=== PATIENT | male | born 1960 | race Caucasian/White ===

== ENCOUNTER → 2016-10-16 | Outpatient (CLI) | payer OTHER ==
[~2016-10-16] VITALS: Ht 180.3 cm; Wt 83.5 kg
[~2016-10-16] MED LIST: ALLOPURINOL 30300 M2 PO; ASPIR 8181 M1 PO; CIALIS5 MG PO; FISH OIL 1,001000 M2 PO; HYDROCHLOROTHIA25 M2 PO; IRBESARTAN300 MG PO
--- NOTE | ~2016-10-16 | S ---
[facility] [place] [address] [address] SURGICAL PATH RPT PROCEDURE Name: EZEQUIEL CHOI Room #: REG Liudmila NamJosh.#: [id number] Admission: 10/16/16 Date of : 62 Discharge: Report #: [id number] Path Case #: [id number] PATHOLOGY REPORT COLLECTION DATE: 10/16/2016 RECEIVED DATE: 10/16/2016 SUBMITTING PHYS: Dr. Marvin Brown OTHER PHYS: Dr. Issac Coronel SPECIMEN(S) RECEIVED: A.Random bx r/o microscopic colitis B.Bx of rectal polyp * * * * * * * * * * * * FINAL DIAGNOSIS: A. Colon, random biopsies: - Findings consistent with mild lymphocytic colitis (please see microscopic). B. Colon, rectum, biopsy: - Hyperplastic polyp with mild to moderate acute and chronic inflammation. (SKM/coy; 10/19/2016) PATHOLOGIST: Maria Esther Martins M.D. REPORT ELECTRONICALLY SIGNED BY: Maria Esther Martins M.D. DATE/TIME: 10/19/2016 11:44 * * * * * * * * * * * * MICROSCOPIC DESCRIPTION: A. Sections show fragments of colonic mucosa in which increased numbers of acute and chronic inflammatory cells are present in the lamina propria. Mild crypt distortion is seen, however, there is no evidence of crypt abscesses or acute cryptitis. Mildly increased numbers of intraepithelial lymphocytes are seen in the surface epithelium which exhibits tiny focal areas of disruption. GROSS PATHOLOGY: A. Received in formalin labeled "Ezequiel Choi, random biopsy rule out microscopic colitis," are 6 segments of ley soft tissue measuring 1.0 x 0.7 x 0.3 cm in aggregate dimensions and ranging from 0.3 to 0.5 cm in maximum dimension. The specimen is submitted entirely in cassette A1. B. Received in formalin labeled "Ezequiel Choi, biopsy of rectal polyp," are 3 segments of ley soft tissue measuring 0.6 x 0.4 x 0.2 cm in aggregate dimensions and ranging from 0.2 to 0.3 cm in maximum dimension. The specimen is submitted entirely in cassette B1. (KAH; 10/17/2016) [place] [address] [place] [address] SURGICAL PATH RPT PROCEDURE Name: EZEQUIEL CHOI Room #: REG [id number] Admission: 10/16/16 Date of : 62 Discharge: Report #: [id number] Path Case #: [id number] CLINICAL HISTORY: Pre-op dx: Diarrhea Post-op dx: Rectal polyp INITIAL CPT CODE(S): A; 73824 B; 98494 Professional services performed by [facility] at [facility] [address] [place] [address] Technical services performed by [facility] at [address] [place] [address], [address], [place] [address]. [facility] [address] [address] PHONE: [phone] DIRECTOR: Prudencio Jade M.D. * * * END OF REPORT * * *
== END | disposition home or self-care (01) ==
LOC: GI 06:47
DX: K52.832 Lymphocytic colitis (principal); K62.1 Rectal polyp; I10 Essential (primary) hypertension; M10.9 Gout, unspecified; E07.9 Disorder of thyroid, unspecified; M79.7 Fibromyalgia; F17.210 Nicotine dependence, cigarettes, uncomplicated; Z98.890 Other specified postprocedural states; Z79.82 Long term (current) use of aspirin
CPT/HCPCS: 62110; 62900

== ENCOUNTER → 2019-04-14 | Outpatient (CLI) | payer OTHER | LOC: CAT 08:19 | DX: Z13.6 Encounter for screening for cardiovascular disorders (principal); E78.00 Pure hypercholesterolemia, unspecified; I25.10 Atherosclerotic heart disease of native coronary artery without angina pectoris ==

== ENCOUNTER → 2019-06-02 | Outpatient (CLI) | payer OTHER | LOC: SJCVCIMAG 09:15 | DX: I11.9 Hypertensive heart disease without heart failure (principal); I25.10 Atherosclerotic heart disease of native coronary artery without angina pectoris; E78.5 Hyperlipidemia, unspecified; F17.200 Nicotine dependence, unspecified, uncomplicated; Z79.899 Other long term (current) drug therapy; Z79.82 Long term (current) use of aspirin ==

== ENCOUNTER → 2019-07-25 | Outpatient (CLI) | payer OTHER | LOC: ULTRA 12:54 | DX: S89.91XA Unspecified injury of right lower leg, initial encounter (principal); X58.XXXA Exposure to other specified factors, initial encounter; Y93.89 Activity, other specified; Y92.89 Other specified places as the place of occurrence of the external cause; Y99.8 Other external cause status ==

== ENCOUNTER → 2019-07-31 | Outpatient (CLI) | payer OTHER | LOC: HYPER 09:52 | DX: S80.11XD Contusion of right lower leg, subsequent encounter (principal); S81.801A Unspecified open wound, right lower leg, initial encounter; R21 Rash and other nonspecific skin eruption; R93.1 Abnormal findings on diagnostic imaging of heart and coronary circulation; E78.5 Hyperlipidemia, unspecified; I25.10 Atherosclerotic heart disease of native coronary artery without angina pectoris; I10 Essential (primary) hypertension; M10.9 Gout, unspecified; F17.290 Nicotine dependence, other tobacco product, uncomplicated; F17.200 Nicotine dependence, unspecified, uncomplicated; X58.XXXA Exposure to other specified factors, initial encounter; Y93.89 Activity, other specified; Y92.89 Other specified places as the place of occurrence of the external cause; Y99.8 Other external cause status ==

== ENCOUNTER → 2019-08-03 | Outpatient (CLI) | payer OTHER | LOC: HYPER 09:13 | DX: S80.11XD Contusion of right lower leg, subsequent encounter (principal); S81.801D Unspecified open wound, right lower leg, subsequent encounter; R21 Rash and other nonspecific skin eruption; R93.1 Abnormal findings on diagnostic imaging of heart and coronary circulation; E78.5 Hyperlipidemia, unspecified; I25.10 Atherosclerotic heart disease of native coronary artery without angina pectoris; I10 Essential (primary) hypertension; M10.9 Gout, unspecified; F17.290 Nicotine dependence, other tobacco product, uncomplicated ==

== ENCOUNTER → 2019-08-17 | Outpatient (CLI) | payer OTHER | LOC: HYPER 08:29 | DX: T81.31XD Disruption of external operation (surgical) wound, not elsewhere classified, subsequent encounter (principal); S80.11XD Contusion of right lower leg, subsequent encounter; R21 Rash and other nonspecific skin eruption; R93.1 Abnormal findings on diagnostic imaging of heart and coronary circulation; E78.5 Hyperlipidemia, unspecified; I25.10 Atherosclerotic heart disease of native coronary artery without angina pectoris; I10 Essential (primary) hypertension; M10.9 Gout, unspecified; F17.290 Nicotine dependence, other tobacco product, uncomplicated; X58.XXXD Exposure to other specified factors, subsequent encounter; Y83.8 Other surgical procedures as the cause of abnormal reaction of the patient, or of later complication, without mention of misadventure at the time of the procedure ==

== ENCOUNTER → 2019-08-31 | Outpatient (CLI) | payer OTHER | LOC: HYPER 07:16 | PROVIDERS: ATTEND Emergency Medicine | DX: T81.31XD Disruption of external operation (surgical) wound, not elsewhere classified, subsequent encounter (principal); L97.112 Non-pressure chronic ulcer of right thigh with fat layer exposed; S80.11XD Contusion of right lower leg, subsequent encounter; R21 Rash and other nonspecific skin eruption; R93.1 Abnormal findings on diagnostic imaging of heart and coronary circulation; E78.5 Hyperlipidemia, unspecified; I25.10 Atherosclerotic heart disease of native coronary artery without angina pectoris; I10 Essential (primary) hypertension; M10.9 Gout, unspecified; F17.290 Nicotine dependence, other tobacco product, uncomplicated; X58.XXXD Exposure to other specified factors, subsequent encounter; Y83.8 Other surgical procedures as the cause of abnormal reaction of the patient, or of later complication, without mention of misadventure at the time of the procedure ==

== ENCOUNTER → 2019-09-13 | Outpatient (CLI) | payer OTHER | LOC: HYPER 08:00 | PROVIDERS: ATTEND Emergency Medicine | DX: T81.31XD Disruption of external operation (surgical) wound, not elsewhere classified, subsequent encounter (principal); L97.112 Non-pressure chronic ulcer of right thigh with fat layer exposed; S80.11XD Contusion of right lower leg, subsequent encounter; R21 Rash and other nonspecific skin eruption; R93.1 Abnormal findings on diagnostic imaging of heart and coronary circulation; I25.10 Atherosclerotic heart disease of native coronary artery without angina pectoris; E78.5 Hyperlipidemia, unspecified; I10 Essential (primary) hypertension; M10.9 Gout, unspecified; F17.200 Nicotine dependence, unspecified, uncomplicated; Z79.82 Long term (current) use of aspirin; X58.XXXD Exposure to other specified factors, subsequent encounter; Y83.8 Other surgical procedures as the cause of abnormal reaction of the patient, or of later complication, without mention of misadventure at the time of the procedure ==

== ENCOUNTER → 2019-09-27 | Outpatient (CLI) | payer OTHER | LOC: HYPER 08:06 | PROVIDERS: ATTEND Emergency Medicine | DX: T81.31XD Disruption of external operation (surgical) wound, not elsewhere classified, subsequent encounter (principal); L97.112 Non-pressure chronic ulcer of right thigh with fat layer exposed; S80.11XD Contusion of right lower leg, subsequent encounter; R21 Rash and other nonspecific skin eruption; E78.5 Hyperlipidemia, unspecified; I25.10 Atherosclerotic heart disease of native coronary artery without angina pectoris; I10 Essential (primary) hypertension; R93.1 Abnormal findings on diagnostic imaging of heart and coronary circulation; M10.9 Gout, unspecified; F17.290 Nicotine dependence, other tobacco product, uncomplicated; X58.XXXD Exposure to other specified factors, subsequent encounter; Y83.8 Other surgical procedures as the cause of abnormal reaction of the patient, or of later complication, without mention of misadventure at the time of the procedure ==

== ENCOUNTER → 2019-10-10 | Outpatient (CLI) | payer OTHER | LOC: MRI 13:51 | PROVIDERS: ATTEND Nurse Practitioner | DX: S82.011A Displaced osteochondral fracture of right patella, initial encounter for closed fracture (principal); M25.561 Pain in right knee; X58.XXXA Exposure to other specified factors, initial encounter; Y93.89 Activity, other specified; Y92.89 Other specified places as the place of occurrence of the external cause; Y99.8 Other external cause status ==